=== PATIENT | female | born 1945 | race Caucasian/White ===

== ENCOUNTER 2016-11-15 10:30 | Emergency (ER) | payer OTHER ==
[~2016-11-15] VITALS: Ht 165.1 cm; Wt 75.0 kg
[~2016-11-15 10:30] MED LIST: ALPR1 PO; ASPI325T PO; PAXI40TA PO; REST30CA PO
[2016-11-15 10:31] VITALS: BP 163/87; PULSE 108; RESP 16; TEMP 98.7; O2SAT 95
[2016-11-15] MEDS ORDERED: PAXI10TA2 PO (12:16)
[2016-11-15] MEDS ORDERED: XANA1TAB2 PO (12:29)
[2016-11-15] MEDS ORDERED: ASPI325T PO (12:29)
[2016-11-15] MEDS ORDERED: AUGM875T3 PO (13:09)
--- NOTE | 2016-11-15 13:11 | PD ---
HPI Chief Complaint: Oral / Dental Pain or Problem Time Seen by Provider: 12:51 Travel History International Travel<30 days: No Contact w/Intl Traveler<30days: No History of Present Illness HPI 70 -year-old female here with chief complaint of left lower dental pain and facial swelling 3 days. Patient denies fever or chills. Patient reports extensive history of dental abscesses. She has a dentist but was unable to obtain an appointment this week. Symptoms severity mild. No alleviating factors. PFSH Past Medical History Anemia: Yes Blood Disorders: No Anxiety: Yes Depression: Yes Cancer: No Cardiovascular Problems: No Chemotherapy: No Diminished Hearing: No Endocrine: No Genitourinary: No Musculoskeletal: Yes Neurologic: Yes (bilateral lower extremity neuropathies) Psychiatric: Yes Reproductive: No Respiratory: No Radiation Therapy: No Tetanus Vaccination: > 5 Years : 5 Para: 4 Miscarriage: 1 Ovarian Cysts: Yes (LEFT OVARY REMOVED (1969')) Past Surgical History Abdominal Surgery: No Cardiac Surgery: No Ear Surgery: No Endocrine Surgery: No Eye Surgery: No Genitourinary Surgery: No Gynecologic Surgery: Yes Oral Surgery: No Thoracic Surgery: No Other Surgery: Yes Social History Alcohol Use: No Tobacco Use: Yes Substance Use: No Allergies-Medications (Allergen,Severity, Reaction): Coded Allergies: trazodone (Unverified Allergy, Severe, THROAT SWELLING, 11/15/16) codeine (Unverified Allergy, Unknown, Nausea/Vomiting, 11/15/16) tramadol (Unverified Adverse Reaction, Unknown, PATIENT STATES NO ULTRAM PER MD WITH XAVIER, 11/15/16) Reported Meds & Prescriptions Reported Meds & Active Scripts Active Reported Aspirin 325 Mg Tab 325 Mg PO DAILY Xanax (Alprazolam) 1 Mg Tab 1 Mg PO Q6H PRN Paxil (Paroxetine HCl) 10 Mg Tab 40 Mg PO HS Aspirin 325 Mg Tab (Aspirin) 325 Mg Tab 325 Mg PO DAILY Restoril 30 mg (Temazepam) 30 Mg Cap 1 Cap PO DAILY Xanax 1 Mg Tab (Alprazolam) 1 Mg Tab 1 Mg PO TID Paxil (Paroxetine HCl) 40 Mg Tab 40 Mg PO HS Review of Systems Except as stated in HPI: all other systems reviewed are Neg General / Constitutional: No: Fever Physical Exam Narrative GENERAL: Well-nourished, well-developed patient. SKIN: Focused skin assessment warm/dry. HEAD: Normocephalic. EYES: No scleral icterus. No injection or drainage. MOUTH: Mucous membranes moist, no lesions, tongue. Widespread dental decay. NECK: Supple, trachea midline. No JVD or lymphadenopathy. Data Data Last Documented VS Vital Signs Date Time Temp Pulse Resp B/P (MAP) Pulse Ox O2 Delivery O2 Flow Rate FiO2 11/15/16 10:31 98.7 108 16 163/87 (112) 95 MDM Medical Decision Making Medical Screen Exam Complete: Yes Emergency Medical Condition: Yes Differential Diagnosis Dental abscess, dental caries, periodontal disease Narrative Course 70 -year-old female with chief complaint of left lower dental pain and swelling 3 days. On exam patient has widespread dental decay. There is surrounding erythema surrounding tooth number [id number]. Diagnosis Primary Impression: Dental abscess Referrals: Dentist Additional Instructions: Take antibiotics as prescribed. Take [id number] Motrin 600 800 mg every 6-8 hours as needed for pain. Scripts Amoxicillin-Clavulanate (Augmentin) 875-125 Mg Tab 1 TAB PO BID for Infection for 7 Days, #14 TAB 0 Refills Prov: Sherrie Landers 11/15/16 Disposition: 01 DISCHARGE HOME Condition: Stable Sherrie Landers Nov 15, 2016 13:11
== END 2016-11-15 13:22 | disposition home or self-care (01) ==
LOC: NEPD 10:30
DX: K04.7 Periapical abscess without sinus (principal); Z72.0 Tobacco use
CPT/HCPCS: 99283